=== PATIENT | male | born 1995 | race Caucasian/White ===

== ENCOUNTER 2018-01-10 19:48 | Emergency (ER) | payer BC ==
--- NOTE | 2018-01-10 20:10 | EDM.PDOC ---
ED HPI GENERAL MEDICAL PROBLEM - General Chief Complaint: ENT Problem Stated Complaint: HEAD COLD/EAR PAIN Time Seen by Provider: 01/10/18 20:10 Source of Information: Reports: Patient - History of Present Illness INITIAL COMMENTS - FREE TEXT/NARRATIVE: HISTORY AND PHYSICAL: History of present illness: [Patient presents with ear pain mostly on the right he also complains of some jawline pain, his teeth are filed consistent with tooth grinding at night he also has some TMJ component she has pain with opening and closing of the jaw with pressure applied to the TMJ. He does however have an otitis media on the right with effusion likely secondary to the TMJ but red with slight bulge otitis media does come into play no mastoid tenderness left side is mildly injected no TMJ pain No fever nausea vomiting chills sweats Dentition is in good shape there is not actually any pain or swelling along the jawline such as a dental abscess No fever nausea vomiting chills sweats ] Review of systems: As per history of present illness and below otherwise all systems reviewed and negative. Past medical history: As per history of present illness and as reviewed below otherwise noncontributory. Surgical history: As per history of present illness and as reviewed below otherwise noncontributory. Social history: No reported history of drug or alcohol abuse. Family history: As per history of present illness and as reviewed below otherwise noncontributory. Physical exam: HEENT: Atraumatic, normocephalic, pupils reactive, negative for conjunctival pallor or scleral icterus, mucous membranes moist, throat clear, neck supple, nontender, trachea midline. Tender on right TMJ as well as otitis media on the right left is mildly injected although clear no mastoid tenderness no pain with movement of the auricle Lungs: Clear to auscultation, breath sounds equal bilaterally, chest nontender. Heart: S1S2, regular, negative for clicks, rubs, or JVD. Abdomen: Soft, nondistended, nontender. Negative for masses or hepatosplenomegaly. Negative for costovertebral tenderness. Pelvis: Stable nontender. Genitourinary: Deferred. Rectal: Deferred. Extremities: Atraumatic, negative for cords or calf pain. Neurovascular unremarkable. Neuro: Awake, alert, oriented. Cranial nerves II through XII unremarkable. Cerebellum unremarkable. Motor and sensory unremarkable throughout. Exam nonfocal. Diagnostics: [Clinical ] Therapeutics: [Amoxicillin Rest ice ibuprofen Mouth block ] Impression: [OM TMJ] Definitive disposition and diagnosis as appropriate pending reevaluation and review of above. right jaw/ear Pain Score (Numeric/FACES): 9 - Related Data Allergies Allergy/AdvReac Type Severity Reaction Status Date / Time No Known Allergies Allergy Verified 01/10/18 20:08 Home Meds: Home Meds . [No Known Home Meds] 01/10/18 [History] ED ROS GENERAL - Review of Systems Review Of Systems: ROS reveals no pertinent complaints other than HPI. ED EXAM, GENERAL - Physical Exam Exam: See Below Course - Vital Signs Last Recorded V/S: Last Vital Signs Temp 98.6 F 01/10/18 20:09 Pulse 76 01/10/18 20:09 Resp 14 01/10/18 20:09 BP 123/66 01/10/18 20:09 Pulse Ox 96 01/10/18 20:09 Departure - Departure Time of Disposition: 20:18 Disposition: Home, Self-Care 01 Condition: Good Clinical Impression: Otitis media, TMJ (temporomandibular joint syndrome) - Discharge Information Referrals: PCP,None [Primary Care Provider] - Forms: ED Department Discharge Additional Instructions: The following information is given to patients seen in the emergency department who are being discharged to home. This information is to outline your options for follow-up care. We provide all patients seen in our emergency department with a follow-up referral. The need for follow-up, as well as the timing and circumstances, are variable depending upon the specifics of your emergency department visit. If you don't have a primary care physician on staff, we will provide you with a referral. We always advise you to contact your personal physician following an emergency department visit to inform them of the circumstance of the visit and for follow-up with them and/or the need for any referrals to a consulting specialist. The emergency department will also refer you to a specialist when appropriate. This referral assures that you have the opportunity for follow-up care with a specialist. All of these measure are taken in an effort to provide you with optimal care, which includes your follow-up. Under all circumstances we always encourage you to contact your private physician who remains a resource for coordinating your care. When calling for follow-up care, please make the office aware that this follow-up is from your recent emergency room visit. If for any reason you are refused follow-up, please contact the [facility] emergency department at and asked to speak to the emergency department charge nurse.
== END 2018-01-10 20:40 | disposition home or self-care (01) ==
LOC: MW.ED 19:48
DX: M26.601 Right temporomandibular joint disorder, unspecified (principal); H66.91 Otitis media, unspecified, right ear
CPT/HCPCS: 99282; 99283

== ENCOUNTER 2018-01-13 16:11 | Emergency (ER) | payer BC ==
--- NOTE | 2018-01-13 17:18 | EDM.PDOC ---
ED HPI GENERAL MEDICAL PROBLEM - General Chief Complaint: ENT Problem Stated Complaint: EARACHE Time Seen by Provider: 01/13/18 17:04 - History of Present Illness INITIAL COMMENTS - FREE TEXT/NARRATIVE: HISTORY AND PHYSICAL: History of present illness: The patient is a 22-year-old male who was seen here on January 10 for right ear pain and was placed on amoxicillin which he has been taking and presents to the ED for reevaluation because it is not improving. He says he has a lot of ear wax and thought maybe easier needed to be irrigated. He has not had a fever cough runny nose or sore throat. There is been no drainage from the ear. The patient says to me and my evaluation that he feels that the medics are not working and he would like them to be changed. He mentioned to nursing that he would like to be on Zithromax Review of systems: As per history of present illness and below otherwise all systems reviewed and negative. Past medical history: As per history of present illness and as reviewed below otherwise noncontributory. Surgical history: As per history of present illness and as reviewed below otherwise noncontributory. Social history: No reported history of drug or alcohol abuse. Family history: As per history of present illness and as reviewed below otherwise noncontributory. Physical exam: Gen.: Well-developed well-nourished man who is nontoxic and speaking clearly and easily in the ED. Vital signs noted by me HEENT: Atraumatic, normocephalic, pupils reactive, negative for conjunctival pallor or scleral icterus, mucous membranes moist, throat clear, neck supple, nontender, trachea midline. There is no cervical adenopathy and no mastoid tenderness or redness. The left TM is difficult to see due to some cerumen but it is slightly dulled and there is no reddening or fluid behind it. The right TM is very difficult to see because the external canal is very swollen and there is some debris in the canal but what I can see of the TM there is still some redness. Lungs: Clear to auscultation, breath sounds equal bilaterally, chest nontender. Heart: S1S2, regular, rate and rhythm no overt murmurs Abdomen: Soft, nondistended, nontender. NABS. Pelvis: See dictation Genitourinary: Deferred. Rectal: Deferred. Extremities: Atraumatic, negative for cords or calf pain. Neurovascular unremarkable. Neuro: Awake, alert, oriented. Cranial nerves II through XII unremarkable. Cerebellum unremarkable. Motor and sensory unremarkable throughout. Exam nonfocal. Diagnostics: [] Therapeutics: The patient was telling me that he is concerned because he feels that the antibiotics are not working and we did discuss the Zithromax is not appropriate for the treatment of otitis media in this age group when he has no known allergies. I did discuss that I will write a prescription via [facility] for Cortisporin otic as he has an external ear infection as well now. Also advise using Motrin and Tylenol for pain Impression: Otitis media with otalgia right on therapy, right otitis externa Definitive disposition and diagnosis as appropriate pending reevaluation and review of above. right ear pain Pain Score (Numeric/FACES): 5 - Related Data Allergies Allergy/AdvReac Type Severity Reaction Status Date / Time No Known Allergies Allergy Verified 01/13/18 16:54 Home Meds: Home Meds Amoxicillin [Amoxil] 1 tab PO BID 01/13/18 [History] Past Medical History - Past Health History Medical/Surgical History: Denies Medical/Surgical History HEENT History: Reports: None Cardiovascular History: Reports: None Respiratory History: Reports: None Gastrointestinal History: Reports: None Genitourinary History: Reports: None Psychiatric History: Reports: None - Infectious Disease History Infectious Disease History: Reports: None Social & Family History - Family History Family Medical History: Noncontributory - Tobacco Use Smoking Status *Q: Never Smoker Second Hand Smoke Exposure: No - Recreational Drug Use Recreational Drug Use: No ED ROS GENERAL - Review of Systems Review Of Systems: ROS reveals no pertinent complaints other than HPI. ED EXAM, GENERAL - Physical Exam Exam: See Below (see dictation) Course - Vital Signs Last Recorded V/S: Last Vital Signs Temp 37.1 C 01/13/18 16:55 Pulse 78 01/13/18 16:55 Resp 16 01/13/18 16:55 BP 112/56 L 01/13/18 16:55 Pulse Ox 96 01/13/18 16:55 Departure - Departure Time of Disposition: 17:22 Disposition: Home, Self-Care 01 Condition: Good Clinical Impression: Otitis externa Qualifiers: Otitis externa type: unspecified type Chronicity: acute Laterality: right Qualified Code(s): H60.501 - Unspecified acute noninfective otitis externa, right ear - Discharge Information Referrals: PCP,Unknown [Primary Care Provider] - Forms: ED Department Discharge Additional Instructions: The following information is given to patients seen in the emergency department who are being discharged to home. This information is to outline your options for follow-up care. We provide all patients seen in our emergency department with a follow-up referral. The need for follow-up, as well as the timing and circumstances, are variable depending upon the specifics of your emergency department visit. If you don't have a primary care physician on staff, we will provide you with a referral. We always advise you to contact your personal physician following an emergency department visit to inform them of the circumstance of the visit and for follow-up with them and/or the need for any referrals to a consulting specialist. The emergency department will also refer you to a specialist when appropriate. This referral assures that you have the opportunity for followup care with a specialist. All of these measure are taken in an effort to provide you with optimal care, which includes your followup. Under all circumstances we always encourage you to contact your private physician who remains a resource for coordinating your care. When calling for followup care, please make the office aware that this follow-up is from your recent emergency room visit. If for any reason you are refused follow-up, please contact the [facility] emergency department at and ask to speak to the emergency department charge nurse. [facility] Primary care- Internal Medicine and Family [address] [address] Please continue and finish the anorexia your given under prior ER visit. Please add the eardrops as prescribed [facility], Cortisporin otic. Please use over- the-counter Tylenol and/or ibuprofen for pain and place nothing in the ear and see her finish with the treatment. Please call and follow-up with one of our providers in the clinic next few days for reevaluation and further care and return to the ER as needed and as discussed
== END 2018-01-13 17:41 | disposition home or self-care (01) ==
LOC: MW.ED 16:11
DX: H60.501 Unspecified acute noninfective otitis externa, right ear (principal)
CPT/HCPCS: 99282

== ENCOUNTER 2019-06-04 13:11 | Emergency (ER) | payer BC, OTHER ==
--- NOTE | 2019-06-04 13:26 | EDM.PDOC ---
ED HPI GENERAL MEDICAL PROBLEM - General Chief Complaint: Laceration Stated Complaint: RIGHT 4TH DIGIT LACERATION Time Seen by Provider: 06/04/19 13:26 Source of Information: Reports: Patient History Limitations: Reports: No Limitations - History of Present Illness INITIAL COMMENTS - FREE TEXT/NARRATIVE: HISTORY AND PHYSICAL: History of present illness: Patient is a 23-year-old male presents to the ED with a laceration. He states a piece of metal came down on his right ring finger while he was changing a motor. He denies any other injury. He is not UTD on tetanus. Review of systems: As per history of present illness and below otherwise all systems reviewed and negative. Past medical history: As per history of present illness and as reviewed below otherwise noncontributory. Surgical history: As per history of present illness and as reviewed below otherwise noncontributory. Social history: No reported history of drug or alcohol abuse. Family history: As per history of present illness and as reviewed below otherwise noncontributory. Physical exam: General: Patient sitting comfortably in no acute distress and nontoxic appearing HEENT: Atraumatic, normocephalic, pupils reactive, negative for conjunctival pallor or scleral icterus, mucous membranes moist, throat clear, neck supple, nontender, trachea midline. No meningeal signs. Lungs: Clear to auscultation, breath sounds equal bilaterally, chest nontender. Heart: S1S2, regular, negative for clicks, rubs, or overt murmur. Abdomen: Soft, nondistended, nontender. Negative for masses or hepatosplenomegaly. Negative for costovertebral tenderness. No rigidity, rebound , guarding. Pelvis: Stable nontender. Genitourinary: Deferred. Rectal: Deferred. Extremities: There is a 1.5cm vertical laceration, 1cm horizontal laceration, and .5cm laceration to the distal right fourth digit. negative for cords or calf pain. Neurovascular unremarkable. Neuro: Awake, alert, oriented. Cranial nerves II through XII unremarkable. Cerebellum unremarkable. Motor and sensory unremarkable throughout. Exam nonfocal. Notes: Diagnostics: x-ray finger Therapeutics: [] Prescriptions: Impression: Laceration, Plan: keep the area clean and dry as instructed. Take antibiotic as prescribed follow-up with primary care provider and hand surgery, please call number provided to schedule an appointment. Return to ED as needed as discussed Definitive disposition and diagnosis as appropriate pending reevaluation and review of above. right 4th figner Pain Score (Numeric/FACES): 7 - Related Data Allergies Allergy/AdvReac Type Severity Reaction Status Date / Time No Known Allergies Allergy Verified 06/04/19 13:18 Home Meds: Home Meds Cephalexin [Keflex] 500 mg PO BID 10 Days #20 capsule 06/04/19 [Rx] Past Medical History - Past Health History Medical/Surgical History: Denies Medical/Surgical History HEENT History: Reports: None Cardiovascular History: Reports: None Respiratory History: Reports: None Gastrointestinal History: Reports: None Genitourinary History: Reports: None Psychiatric History: Reports: None - Infectious Disease History Infectious Disease History: Reports: Chicken Pox Social & Family History - Family History Family Medical History: Noncontributory - Tobacco Use Smoking Status *Q: Never Smoker - Recreational Drug Use Recreational Drug Use: No ED ROS GENERAL - Review of Systems Review Of Systems: ROS reveals no pertinent complaints other than HPI. ED EXAM, SKIN/RASH Exam: See Below (see dictation) ED SKIN PROCEDURES - Laceration/Wound Repair Right Digit - 4th (Ring) Lac/Wound length In cm: 2 (cm) Appearance: Superficial, Subcutaneous, Irregular Distal NVT: Neuro & Vascular Intact, No Tendon Injury Local Anesthetic Volume: 5cc (digital block) Skin Prep: Chlorhexidine (Hibiciens), Saline Saline Irrigation (cc's): 250 Exploration/Debridement/Repair: Wound Explored, In a Bloodless Field, Explored to Base, No Foreign Material Found Closed with: Sutures Suture Size: 4-0 # of Sutures: 12 Suture Type: Interrupted, Simple Course - Vital Signs Last Recorded V/S: Last Vital Signs Temp 97.2 F 06/04/19 13:16 Pulse 72 06/04/19 15:35 Resp 18 06/04/19 15:35 BP 128/70 06/04/19 15:35 Pulse Ox 98 06/04/19 15:35 - Orders/Labs/Meds Orders: Active Orders 24 hr Category Date Time Status Vaccines to be Administered [RC] PER UNIT ROUTINE Care 06/04/19 13:29 Active Meds: Medications Discontinued Medications Generic Name Dose Route Start Last Admin Trade Name Freq PRN Reason Stop Dose Admin Bacitracin Confirm 06/04/19 15:22 06/04/19 15:25 Bacitracin Oint 1 Gm Administered 06/04/19 15:23 1 dose Dose Administration 1 dose .ROUTE .STK-MED ONE Diphtheria/Tetanus/Acell Pertussis 0.5 ml 06/04/19 13:29 06/04/19 15:25 Adacel IM 06/04/19 13:30 0.5 ml .ONCE ONE Administration Lidocaine HCl 5 ml 06/04/19 13:29 Xylocaine-Mpf 1% INJECT 06/04/19 13:30 ONETIME ONE Lidocaine HCl 5 ml 06/04/19 14:23 Xylocaine-Mpf 1% INJECT 06/04/19 14:24 ONETIME ONE Mupirocin 1 gm 06/04/19 15:13 06/04/19 15:23 Bactroban Oint TOP 06/04/19 15:14 Not Given ONETIME ONE Departure - Departure Time of Disposition: 14:58 Disposition: Home, Self-Care 01 Condition: Good Clinical Impression: Laceration - Discharge Information Prescriptions: Cephalexin [Keflex] 500 mg PO BID 10 Days #20 capsule Instructions: Laceration Care, Adult, [id number] Referrals: PCP,None [Primary Care Provider] - Forms: ED Department Discharge Additional Instructions: The following information is given to patients seen in the emergency department who are being discharged to home. This information is to outline your options for follow-up care. We provide all patients seen in our emergency department with a follow-up referral. The need for follow-up, as well as the timing and circumstances, are variable depending upon the specifics of your emergency department visit. If you don't have a primary care physician on staff, we will provide you with a referral. We always advise you to contact your personal physician following an emergency department visit to inform them of the circumstance of the visit and for follow-up with them and/or the need for any referrals to a consulting specialist. The emergency department will also refer you to a specialist when appropriate. This referral assures that you have the opportunity for follow-up care with a specialist. All of these measure are taken in an effort to provide you with optimal care, which includes your follow-up. Under all circumstances we always encourage you to contact your private physician who remains a resource for coordinating your care. When calling for follow-up care, please make the office aware that this follow-up is from your recent emergency room visit. If for any reason you are refused follow-up, please contact the [facility] Emergency Department at and asked to speak to the emergency department charge nurse. [facility] Primary Care [address] [place] [address] [address] [facility] [place] keep the area clean and dry as instructed. Take antibiotic as prescribed follow-up with primary care provider and hand surgery, please call number provided to schedule an appointment. Return to ED as needed as discussed - My Orders Last 24 Hours: My Active Orders 06/04/19 13:29 Vaccines to be Administered [RC] PER UNIT ROUTINE - Assessment/Plan Last 24 Hours: My Active Orders 06/04/19 13:29 Vaccines to be Administered [RC] PER UNIT ROUTINE
[2019-06-04] MEDS ORDERED: Diphtheria,Pertussis(Acell),Tetanus Vaccine 0.5 ML Syringe IM ONE (13:29)
--- NOTE | 2019-06-04 14:18 | CR ---
EXAMINATION: Right hand, fourth digit HISTORY: Injury COMPARISON: None TECHNIQUE: 3 views FINDINGS/IMPRESSION: There is a distal fourth phalanx soft tissue injury with an underlying comminuted fracture of the tuft. Remaining osseous structures and joint spaces appear preserved.
[2019-06-04] MEDS ORDERED: Mupirocin Oint 22 GM Tube TOP ONE (15:13)
[2019-06-04] MEDS ORDERED: Bacitracin Oint 1 GM U/D Packet ONE (15:22)
== END 2019-06-04 15:36 | disposition home or self-care (01) ==
LOC: MW.ED 13:11
DX: S61.214A Laceration without foreign body of right ring finger without damage to nail, initial encounter (principal); Z23 Encounter for immunization; W20.8XXA Other cause of strike by thrown, projected or falling object, initial encounter
CPT/HCPCS: 73140-26-F8; 73140-F8; 90471; 90715; 99283-25

== ENCOUNTER 2019-06-04 21:13 | Emergency (ER) | payer BC ==
[2019-06-04] MEDS ORDERED: Octyl 2-Cyanoacrylate 1 Tube TOP ONE (21:32)
--- NOTE | 2019-06-04 21:33 | EDM.PDOC ---
ED HPI GENERAL MEDICAL PROBLEM - General Chief Complaint: Wound Recheck Stated Complaint: LACERATION IN FINGER Time Seen by Provider: 06/04/19 21:32 Source of Information: Reports: Patient History Limitations: Reports: No Limitations - History of Present Illness INITIAL COMMENTS - FREE TEXT/NARRATIVE: HISTORY AND PHYSICAL: History of present illness: Patient is a 23-year-old male presents to the ED for complaint of bleeding from his laceration. I saw him earlier today for a laceration to the right ring finger and he had 13 sutures placed. He states it has continued to bleed from a couple of spots despite holding pressure for 15 minutes at a time. He whyte no other complaints at this time. Review of systems: As per history of present illness and below otherwise all systems reviewed and negative. Past medical history: As per history of present illness and as reviewed below otherwise noncontributory. Surgical history: As per history of present illness and as reviewed below otherwise noncontributory. Social history: No reported history of drug or alcohol abuse. Family history: As per history of present illness and as reviewed below otherwise noncontributory. Physical exam: General: Patient sitting comfortably in no acute distress and nontoxic appearing HEENT: Atraumatic, normocephalic, pupils reactive, negative for conjunctival pallor or scleral icterus, mucous membranes moist, throat clear, neck supple, nontender, trachea midline. No meningeal signs. Lungs: Clear to auscultation, breath sounds equal bilaterally, chest nontender. Heart: S1S2, regular, negative for clicks, rubs, or overt murmur. Abdomen: Soft, nondistended, nontender. Negative for masses or hepatosplenomegaly. Negative for costovertebral tenderness. No rigidity, rebound , guarding. Pelvis: Stable nontender. Genitourinary: Deferred. Rectal: Deferred. Extremities: laceration to the right ring finger with sutures in place. There is a small area at the distal aspect of the finger with a small amount of bleeding. negative for cords or calf pain. Neurovascular unremarkable. Neuro: Awake, alert, oriented. Cranial nerves II through XII unremarkable. Cerebellum unremarkable. Motor and sensory unremarkable throughout. Exam nonfocal. Notes: Dermabond was used to close small portion of the wound that was still bleeding Diagnostics: none Therapeutics: [] Prescriptions: Impression: wound recheck Plan: Keep the area clean and dry as instructed Follow-up with primary care provider Return to ED as needed as discussed Definitive disposition and diagnosis as appropriate pending reevaluation and review of above. no pain Pain Score (Numeric/FACES): 0 - Related Data Allergies Allergy/AdvReac Type Severity Reaction Status Date / Time No Known Allergies Allergy Verified 06/04/19 21:31 Home Meds: Home Meds Cephalexin [Keflex] 500 mg PO BID 10 Days #20 capsule 06/04/19 [Rx] Past Medical History - Past Health History Medical/Surgical History: Denies Medical/Surgical History HEENT History: Reports: None Cardiovascular History: Reports: None Respiratory History: Reports: None Gastrointestinal History: Reports: None Genitourinary History: Reports: None Psychiatric History: Reports: None - Infectious Disease History Infectious Disease History: Reports: None Social & Family History - Family History Family Medical History: Noncontributory ED ROS GENERAL - Review of Systems Review Of Systems: ROS reveals no pertinent complaints other than HPI. ED EXAM, GENERAL - Physical Exam Exam: See Below (see dictation) Course - Vital Signs Last Recorded V/S: Last Vital Signs Temp 97.3 F 06/04/19 21:31 Pulse 81 06/04/19 21:31 Resp 18 06/04/19 21:31 BP 132/52 L 06/04/19 21:31 Pulse Ox 97 06/04/19 21:31 - Orders/Labs/Meds Meds: Medications Discontinued Medications Generic Name Dose Route Start Last Admin Trade Name Freq PRN Reason Stop Dose Admin Bacitracin 1 dose 06/04/19 21:37 06/04/19 21:42 Bacitracin Oint 1 Gm TOP 06/04/19 21:38 1 dose ONETIME ONE Administration Octyl Cyanoacrylate 1 applic 06/04/19 21:32 06/04/19 21:50 Dermabond Advance TOP 06/04/19 21:33 1 applic ONETIME ONE Administration Departure - Departure Time of Disposition: 21:32 Disposition: Home, Self-Care 01 Condition: Good Clinical Impression: Encounter for wound re-check - Discharge Information Instructions: Wound Check Referrals: PCP,None [Primary Care Provider] - Forms: ED Department Discharge Additional Instructions: The following information is given to patients seen in the emergency department who are being discharged to home. This information is to outline your options for follow-up care. We provide all patients seen in our emergency department with a follow-up referral. The need for follow-up, as well as the timing and circumstances, are variable depending upon the specifics of your emergency department visit. If you don't have a primary care physician on staff, we will provide you with a referral. We always advise you to contact your personal physician following an emergency department visit to inform them of the circumstance of the visit and for follow-up with them and/or the need for any referrals to a consulting specialist. The emergency department will also refer you to a specialist when appropriate. This referral assures that you have the opportunity for follow-up care with a specialist. All of these measure are taken in an effort to provide you with optimal care, which includes your follow-up. Under all circumstances we always encourage you to contact your private physician who remains a resource for coordinating your care. When calling for follow-up care, please make the office aware that this follow-up is from your recent emergency room visit. If for any reason you are refused follow-up, please contact the [facility] Emergency Department at and asked to speak to the emergency department charge nurse. [facility] [address] [place] [id number] [facility] [address] [place] [id number] Keep the area clean and dry as instructed Follow-up with primary care provider Return to ED as needed as discussed
[2019-06-04] MEDS ORDERED: Bacitracin Oint 1 GM U/D Packet TOP ONE (21:37)
== END 2019-06-04 21:45 | disposition home or self-care (01) ==
LOC: MW.ED 21:13
DX: S61.214A Laceration without foreign body of right ring finger without damage to nail, initial encounter (principal); W20.8XXA Other cause of strike by thrown, projected or falling object, initial encounter
CPT/HCPCS: 99282; A9270

== ENCOUNTER 2020-03-01 12:44 | Emergency (ER) | payer OTHER ==
[2020-03-01] MEDS ORDERED: Morphine 10 MG/ML Syringe IVPUSH ONE (12:59)
[2020-03-01] MEDS ORDERED: Ondansetron 4 MG/2 ML SDV IVPUSH ONE (12:59)
--- NOTE | 2020-03-01 13:39 | CT ---
CT cervical spine Technique: Multiple axial sections were obtained through the cervical spine. Reconstructed coronal and sagittal images were obtained. Comparison: No prior cervical spine imaging is available. Findings: Vertebral bodies and posterior arches are intact. No fracture is seen. No bony central or bony neural foraminal stenosis is seen. No gross disc herniation is appreciated. Visualized lung apices are clear. Mild disc space narrowing noted at C5-6 with mild posterior osteophytes and anterior osteophytes. Minimal posterior osteophytes are also noted at C6-7. Impression: 1. Mild degenerative change as noted above. 2. Nothing acute is appreciated on CT study of the cervical spine. Diagnostic code #2 This report was dictated in MDT
--- NOTE | 2020-03-01 13:39 | CR ---
Chest: Portable supine view of the chest was obtained. Comparison: No prior chest imaging is available. Heart size and mediastinum are within normal limits for portable technique. Lungs are clear with no acute parenchymal change. Bony structures are grossly intact. Impression: 1. Nothing acute is appreciated on portable chest x-ray. Diagnostic code #1 This report was dictated in MDT
[2020-03-01] MEDS ORDERED: HYDROmorphone 2 MG/ML Syringe IVPUSH ONE (13:45)
--- NOTE | 2020-03-01 13:45 | CR ---
Left femur: AP view of the left femur was obtained. Comminuted, displaced and angulated proximal and mid femoral shaft fracture is noted. Hip joint appears within normal limits. Knee is not well seen. Impression: 1. Femoral shaft fracture with displacement and angulation. Diagnostic code #3 This report was dictated in MDT
--- NOTE | 2020-03-01 14:02 | CT ---
CT abdomen and pelvis Technique: Multiple axial sections were obtained from above the dome of the diaphragm inferiorly through the pubic symphysis. Intravenous contrast was utilized. No oral contrast has been given. Comparison: No prior abdominal imaging. Findings: Visualized lung bases show nothing acute. Small low density finding is noted within the right lobe liver measuring 6 mm. This is too small to characterize but Hounsfield unit measurements. This most likely represents a small cyst. No additional abnormality is seen within the liver. Spleen appears within normal limits. Adrenal glands show no nodule. Pancreas is within normal limits. Aorta shows no aneurysm. Kidneys show symmetric contrast enhancement without hydronephrosis or mass. No retroperitoneal adenopathy is seen. Aorta shows no aneurysm. No mesenteric abnormalities are seen. No pelvic mass or adenopathy is seen. Bone window settings were reviewed. Fracture is noted to the left side of the vertebral body involving the superior endplate of L3. Minimal displacement is seen. No extension into the posterior elements is seen. No additional fracture is appreciated on bone window settings. Impression: 1. Fracture involving the left side of the superior vertebral body of L3. No extension into the posterior elements is seen. 2. No other acute abnormality is appreciated on CT study of the abdomen and pelvis. Diagnostic code #3 This report was dictated in MDT
--- NOTE | 2020-03-01 14:08 | CT ---
CT chest Technique: Multiple axial sections were obtained from above the lung apices inferiorly through the lung bases. Intravenous contrast was utilized. Comparison: No prior chest imaging is available. Findings: No pericardial thickening is seen. Small low density finding is noted within the right lobe of the liver as noted on previous CT abdomen and pelvis exam. Mediastinum and hilar region show no adenopathy. Thoracic aorta shows no aneurysm. No axillary adenopathy is seen. Lungs show no acute parenchymal change. No pleural effusions or pneumothorax is seen. Bone window settings were reviewed. No definite acute osseous finding is appreciated. Impression: 1. Nothing acute is appreciated on CT study of the chest. Diagnostic code #1 This report was dictated in MDT
[2020-03-01 15:02] LABS: BLOOD UREA NITROGEN,BUN 22 mg/dL (7.0-18.0); CARBON DIOXIDE,CO2 25.2 mmol/L (21.0-32.0); CHLORIDE,CL 105 mmol/L (98-107); GLUCOSE RANDOM 129 mg/dL (74-106); POTASSIUM,K 3.6 mmol/L (3.5-5.1); SODIUM,NA 140 mmol/L (136-148)
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
[2020-03-01] MEDS ORDERED: Iopamidol 755 Mg/ML 100 ML Bottle IVPUSH STA (16:01)
[2020-03-01] MEDS ORDERED: fentaNYL 100 MCG/2 ML SDV ONE (16:04)
== END 2020-03-01 16:19 ==
LOC: MW.ED 12:44
DX: S72.302A Unspecified fracture of shaft of left femur, initial encounter for closed fracture (principal); S32.059A Unspecified fracture of fifth lumbar vertebra, initial encounter for closed fracture; V86.59XA Driver of other special all-terrain or other off-road motor vehicle injured in nontraffic accident, initial encounter
CPT/HCPCS: 36415; 71045; 71260; 72125; 73552; 74177; 80053; 85025; 86850; 86900; 86901; 96374; 96375; 99285; J1170; J2270; J2405; Q9967